=== PATIENT | male | born 1960 | race Caucasian/White ===

== ENCOUNTER 2018-01-16 17:56 | Emergency (ER) | payer OTHER ==
--- NOTE | 2018-01-16 18:06 | EDPHY ---
H & P Stated Complaint: Increasing dyspnea, exertional SOB all week Time Seen by Provider: 01/16/18 18:06 - Personal History Current Tetanus Diphtheria and Acellular Pertussis (TDAP): Yes - Medical/Surgical History Hx Asthma: Yes Hx Chronic Respiratory Disease: Yes - Social History Smoking Status: Former smoker Constitutional: Initial Vital Signs Temperature (C) 36.5 C 01/16/18 17:57 Heart Rate 84 01/16/18 17:57 Respiratory Rate 20 01/16/18 17:57 Blood Pressure 141/76 H 01/16/18 17:57 O2 Sat (%) 91 L 01/16/18 17:57 O2 Delivery Mode Nasal Cannula O2 (L/minute) 3 Allergies/Adverse Reactions: No Known Allergies Allergy (Unverified 01/16/18 17:56) Home Medications: Medication Instructions Recorded Albuterol Hfa Anes Only [Proair 18 gm IH 01/16/18 Hfa Icu (*)] Albuterol Sulfate [Proair Hfa] 8.5 gm IH 01/16/18 Umeclidinium Brm/Vilanterol Tr 1 each 01/16/18 [Anoro Ellipta 62.5-25 Mcg INH] predniSONE 10 mg PO DAILY #20 tab 01/16/18 Medical Decision Making - Diagnostics Imaging Results: Imaging Impressions Chest X-Ray 01/16/18 18:10 Impression: COPD/emphysema. Suspect an element of underlying interstitial lung disease. Imaging: I viewed and interpreted images myself ED Course/Re-evaluation: CHIEF COMPLAINT: Shortness of breath HISTORY OF PRESENT ILLNESS: The patient is a 58 y/o male with a history of COPD (on 2L of O2), emphysema, and asthma complaining of worsening shortness of breath for the past week. Due to the amount of smoke and the increase of ozone alert days, the patient's chronic dyspnea has worsened. He typically wears 2L of oxygen at night or while exercising, but he has needed to use it consistently for the past week. With prior COPD exacerbations he has taken Prednisone. Denies headache, chest pain, abdominal pain, urinary or bowel complaints, numbness, paresthesias, fever. REVIEW OF SYSTEMS: A 10 point review of systems was performed and is negative with the exception of the elements mentioned in the history of present illness. PHYSICAL EXAM: HR, BP, O2 Sat, RR. Temp noted General Appearance: Alert, well hydrated, appropriate, and non-toxic appearing. Head: Atraumatic without scalp tenderness or obvious injury Eyes: Pupils equal, round, reactive to light and accommodation, EOMI, no trauma , no injection. Ears: Clear bilaterally, no perforation, normal landmarks Nose: Atraumatic, no rhinorrhea, clear. Throat: There is no erythema or exudates, no lesions, normal tonsils, mucus membranes moist. Neck: Supple, 2+ carotid upstroke, nontender, no lymphadenopathy. Respiratory: Expiratory and inspiratory wheezes, prolonged expiratory phase in all andrade. No retractions, no distress, and no accessory muscle use. Cardiovascular: Regular rate and rhythm, no murmurs, rubs, or gallops. Bilateral carotid, radial, dorsalis pedis, and posterior tibial pulses intact. Good capillary refill all extremities. Gastrointestinal: Abdomen is soft, nontender, non-distended, no masses, no rebound, no guarding, no peritoneal signs. Musculoskeletal: Normal active ROM of all extremities, atraumatic. Neurological: Alert, appropriate, and interactive. The patient has normal DTRs and non-focal cranial nerves, motor, sensory, and cerebellar exam. Skin: No rashes, good turgor, no nodules on palpation. Past medical history: Asthma, COPD, emphysema Past surgical history: Denies Family history: Denies Social history: at bedside, lives in [place], former smoker DIAGNOSTICS/PROCEDURES/CRITICAL CARE TIME: Chest x-ray: COPD and emphysema DIFFERENTIAL DIAGNOSIS: The differential diagnosis for the patient's shortness of breath and hypoxemia included but was not limited to pneumonia, myocardial infarction, acute mountain sickness, high altitude pulmonary edema, congestive heart failure, and pulmonary embolus. MEDICAL DECISION MAKING: The patient is a 58 y/o male with a history of COPD (on 2L of O2), emphysema, and asthma presenting with worsening shortness of breath for the past week. On exam he has expiratory and inspiratory wheezes, as well as a prolonged expiratory phase in all andrade. Chest x-ray and labs ordered; 60mg PO Prednisone and DuoNeb administered. 1840: Reassessed patient and discussed laboratory and imaging findings. He is feeling significantly improved after medications and is requesting to return home. I have prescribed him Prednisone and advised him to follow up with his PCP. Return precautions provided; patient is comfortable with this plan. - Data Points Medications Given: Discontinued Medications Albuterol/Ipratropium (Duoneb) 3 ml IH EDNOW ONE Stop: 01/16/18 18:11 Last Admin: 01/16/18 18:13 Dose: 3 ml Prednisone (Prednisone) 60 mg PO EDNOW ONE Stop: 01/16/18 18:11 Last Admin: 01/16/18 18:13 Dose: 60 mg Departure - Departure Disposition: Home, Routine, Self-Care Clinical Impression: Chronic obstructive pulmonary disease with acute exacerbation Condition: Good Instructions: COPD (Chronic Obstructive Pulmonary Disease) (ED) Additional Instructions: 1. Take Prednisone as prescribed. 2. Followup with your primary doctor within 72 hours for reevaluation. 3. Return to the emergency department for fever, worsening pain, shortness of breath or difficulty breathing, abdominal pain, blood in urine or other concerns. Referrals: Hermann Wiggins MD [[facility] [place] Primary Care Provider] - As per Instructions Prescriptions: predniSONE 10 mg PO DAILY #20 tab Report Scribed for: Greg Sotomayor Report Scribed by: Diamond Sanchez Date of Report: 01/16/18 Time of Report: 18:07
[2018-01-16] MEDS ORDERED: IPRATROPIUM/ALBUTEROL 3 ML DEYVIAL IH ONE (18:10)
[2018-01-16] MEDS ORDERED: predniSONE 20 MG TAB PO ONE (18:10)
[2018-01-16 19:07] VITALS: BP 140/69
== END 2018-01-16 19:07 | disposition home or self-care (01) ==
DX: J44.1 Chronic obstructive pulmonary disease with (acute) exacerbation (principal); Z87.891 Personal history of nicotine dependence; Z99.81 Dependence on supplemental oxygen
CPT/HCPCS: J7512